=== PATIENT | female | born 1990 ===

== ENCOUNTER 2017-11-02 16:02 | Emergency (ER) | payer SELFPAY ==
[~2017-11-02] VITALS: Ht 162.6 cm; Wt 68.0 kg
[2017-11-02 16:29] VITALS: BP 127/63; PULSE 80; RESP 16; TEMP 98.3; O2SAT 97
== END 2017-11-02 16:45 | disposition left against medical advice (07) ==
LOC: NED 16:02
DX: J00 Acute nasopharyngitis [common cold] (principal); Z53.21 Procedure and treatment not carried out due to patient leaving prior to being seen by health care provider
CPT/HCPCS: 99281